=== PATIENT | female | born 1995 | race Caucasian/White ===

== ENCOUNTER 2025-03-07 18:15 | Emergency (ER) | payer OTHER ==
[2025-03-07 19:33] LABS: Absolute Lymphocytes (CBC) 3.0 K/uL (0.7-4.9); Hematocrit 39.4 % (36.0-45.0); Hemoglobin 13.0 g/dL (12.0-15.0); MCH 29.6 pg (27.0-35.0); MCHC 32.9 g/dL (32.0-36.0); MCV 89.9 fL (80-100); MPV 10.4 fL (7.6-11.3); Nucleated RBC Absolute Count 0.0 (0-0); Nucleated Red Blood Cells % 0.0 % (0-0); RBC Red Blood Cell Count 4.38 M/uL (3.86-4.86); White Blood Count 7.30 thou/uL (4.3-10.9)
[2025-03-07 19:34] LABS: Urine Culture Reflex Order REFLEXED; Urine Microscopic Reflex YN NO UMIC
[2025-03-07 19:56] LABS: Anion Gap 7.0 mEq/L (5.0-15.0); BUN Blood Urea Nitrogen 11.0 mg/dL (7-18); Glucose Level 90.0 mg/dL (74-106); HCG, Quantitative 18.0 mIU/mL (1-3); Potassium 4.0 mEq/L (3.5-5.1)
--- NOTE | 2025-03-07 20:30 | RAD REPORT ---
EXAM: Transvaginal OB HISTORY: VAGINAL BLEEDING COMPARISON: None TECHNIQUE: Multiple grayscale and color Doppler images were obtained in a transvaginal pelvic ultraso und. Spectral analysis of the Doppler waveforms of the ovaries were performed. FINDINGS: UTERUS: No IUP identified. No free fluid is seen in the pelvis. RIGHT OVARY: Normal flow without focal mass. LEFT OVARY: Normal flow without focal mass. IMPRESSION: No IUP identified. In the setting of a positive hCG level, this would indicate of unknown l ocation. Serial hCG level measurements and short term follow-up is recommended Bilateral ovarian blood flow.
[2025-03-07] MEDS ORDERED: ACETAMINOPHEN 500 MG TAB ONE (20:55)
--- NOTE | 2025-03-07 21:28 | EDPHYS ---
Physician Documentation [facility] Name: Linette Leavitt Age: 30 yrs Sex: Female : 1995 Arrival Date: 03/07/2025 Time: 18:15 Bed 8 Private MD: ED Physician Mau White HPI: 03/07 18:50 This 30 yrs old Female presents to ER via Ambulatory with complaints of Abdominal cp Cramping, bleeding /preg. 18:50 The patient presents to the emergency department with abdominal pain, of the left lower cp quadrant and right lower quadrant, that started today, described as crampy, vaginal bleeding. 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 Last tetanus immunization: up to date. - Infectious Disease History:: Denies. - Social history:: Smoking status: Patient denies any tobacco usage or history of. ROS: 20:53 Abdomen/GI: Positive for abdominal cramps, cp 20:53 : Positive for vaginal bleeding, 20:55 Constitutional: Negative for body aches, chills, fever, poor PO intake, cp 20:55 Eyes: Negative for injury, pain, redness, and discharge, cp 20:55 ENT: Negative for drainage from ear(s), ear pain, sore throat, difficulty swallowing, difficulty handling secretions, 20:55 Cardiovascular: Negative for chest pain, palpitations, 20:55 Respiratory: Negative for cough, shortness of breath, wheezing, 20:55 Back: Negative for pain at rest, pain with movement, 20:55 Neuro: Negative for altered mental status, weakness, 20:55 All other systems are negative, Exam: 20:57 Constitutional: The patient appears in no acute distress, alert, awake, non-toxic, well cp developed, well nourished, obese, 20:57 Head/Face: Normocephalic, atraumatic. cp 20:57 Eyes: Periorbital structures: appear normal, Conjunctiva: normal, no exudate, no injection, Sclera: no appreciated abnormality, Lids and lashes: appear normal, bilaterally, 20:57 ENT: External ear(s): are unremarkable, Nose: is normal, Mouth: Lips: moist, Oral mucosa: moist, Posterior pharynx: Airway: no evidence of obstruction, patent, 20:57 Chest/axilla: Inspection: normal, 20:57 Cardiovascular: Rate: normal, Rhythm: regular, 20:57 Respiratory: the patient does not display signs of respiratory distress, Respirations: normal, no use of accessory muscles, no retractions, labored breathing, is not present, Breath sounds: are clear throughout, no decreased breath sounds, no stridor, no wheezing, 20:57 Abdomen/GI: Inspection: abdomen appears normal, Bowel sounds: active, all quadrants, Palpation: soft, in all quadrants, mild abdominal tenderness, in the right lower quadrant and left lower quadrant, rebound tenderness, is not appreciated, involuntary guarding, is not appreciated, 20:57 Back: ROM is normal, CVA tenderness, is absent, 20:57 Neuro: Orientation: to person, place \T\ time. Mentation: is normal, Motor: moves all fours, strength is normal, Sensation: is normal, Vital Signs: 18:36 BP 122 / 76; Pulse 75; Resp 18; Temp 98.1; Pulse Ox 100% on R/A; Weight 107.05 kg; db Height 5 ft. 5 in. ; 19:49 BP 121 / 78; Pulse 83; Resp 18; Pulse Ox 99% ; cp4 20:45 BP 128 / 74; Pulse 87; Resp 18; Pulse Ox 99% on R/A; hm5 21:34 BP 129 / 84; Pulse 83; Resp 17; Pulse Ox 100% on R/A; hm5 18:36 Body Mass Index 39.27 (107.05 kg, 165.1 cm) db MDM: 18:37 Medical Screening Exam initiated cp 21:27 Data reviewed: vital signs, nurses notes, lab test result(s), radiologic studies, cp ultrasound, and as a result, I will discharge patient. 21:27 Differential diagnosis: STD, ectopic , uti. I considered the following cp discharge prescriptions or medication management in the emergency department Medications were administered in the Emergency Department. See MAR. Counseling: I had a detailed discussion with the patient and/or guardian regarding the historical points, exam findings, and any diagnostic results supporting the discharge/admit diagnosis, lab results, radiology results, the need for outpatient follow up, an OB/Gyne specialist, to return to the emergency department if symptoms worsen or persist or if there are any questions or concerns that arise at home. Special discussion: low serum beta-hcg and no IUP seen on US. recommend recheck beta-hcg in 48 hrs. 03/07 18:47 Order name: Abo/rh Typing; Complete Time: 20:48 cp 03/07 20:49 Interpretation: Reviewed. 03/07 18:47 Order name: Basic Metabolic Panel; Complete Time: 20:48 cp 03/07 20:48 Interpretation: Normal except: CL 111. 03/07 18:47 Order name: CBC with Diff; Complete Time: 20:48 cp 03/07 20:49 Interpretation: Reviewed. 03/07 18:47 Order name: Test, Urine; Complete Time: 20:48 cp 03/07 20:48 Interpretation: Reviewed. 03/07 18:47 Order name: Quantitative Hcg; Complete Time: 20:48 cp 03/07 20:48 Interpretation: Reviewed. 03/07 18:47 Order name: UA Rfx Silvano Cult if indicated; Complete Time: 20:48 cp 03/07 20:49 Interpretation: Reviewed. 03/07 19:41 Order name: Urine Culture EDID 03/07 19:31 Order name: US Transvaginal Ob; Complete Time: 20:48 cp 03/07 20:49 Interpretation: Report reviewed. 03/07 18:47 Order name: IV Saline Lock; Complete Time: 19:15 cp 03/07 18:47 Order name: Labs collected and sent; Complete Time: 19:15 cp 03/07 18:47 Order name: NPO; Complete Time: 19:15 cp Administered Medications: 20:57 Drug: Acetaminophen PO 1000 mg PO once Route: PO; hm5 21:35 Follow up: Response: No adverse reaction; Pain is decreased hm5 Disposition Summary: 03/07/25 21:27 Discharge Ordered Notes: Location: Home cp Problem: new cp Symptoms: have improved cp Condition: Stable cp Diagnosis - Threatened cp Followup: cp - With: Private Physician - When: 48 Hours - Reason: Repeat Beta-HCG (48 Hours) Discharge Instructions: - Discharge Summary Sheet cp - Threatened Miscarriage cp - Vaginal Bleeding During , First Trimester cp Forms: - Medication Reconciliation Form cp - Antibiotic Education cp - Prescription Opioid Use cp - Patient Portal Instructions cp - Leadership Thank You Letter cp Signatures: Dispatcher [employer] EDBenigno Baltazar PA-C PA-C cp Benton, Danielle RN RN db Ines Farmer RN RN hm5 Corrections: (The following items were deleted from the chart) 18:38 18:38 Allergies: No Known Allergies; db db 20:53 18:50 5, Full Term 3, 1, Living 3, LMP 02/04/2025, Verified, cp EDC 11/11/2025, Gestational age from LMP: 4 weeks 4 days cp
--- NOTE | 2025-03-07 21:28 | ER ---
Nurse's Notes [facility] Name: Linette Leavitt Age: 30 yrs Sex: Female : 1995 Arrival Date: 03/07/2025 Time: 18:15 Bed 8 Private MD: Diagnosis: Threatened Presentation: 03/07 18:36 Chief complaint: Patient states: she started having abdominal cramping and bleeding db today. patient reports positive blood test for at [place] last week. LMP is 02/01/25. Coronavirus screen: At this time, the client does not indicate any symptoms associated with coronavirus-19. Ebola Screen: No symptoms or risks identified at this time. Initial Sepsis Screen: Does the patient meet any 2 criteria? No. Patient's initial sepsis screen is negative. Does the patient have a suspected source of infection? No. Patient's initial sepsis screen is negative. Risk Assessment: Do you want to hurt yourself or someone else? Patient reports no desire to harm self or others. Onset of symptoms was March 07, 2025. 18:36 Method Of Arrival: Ambulatory db 18:36 Method Of Arrival: Ambulatory db 18:36 Acuity: MARCY 3 db Triage Assessment: 18:38 General: Appears in no apparent distress. Behavior is calm, cooperative, appropriate db for age. Pain: Complains of pain in pelvis. Neuro: Level of Consciousness is awake, alert, obeys commands, Oriented to person, place, time, situation, Appropriate for age. Cardiovascular: Patient's skin is warm and dry. Respiratory: Airway is patent Respiratory effort is even, unlabored, Respiratory pattern is regular, symmetrical. GI: Reports lower abdominal pain. : Reports vaginal bleeding that is. 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 Last tetanus immunization: up to date. - Infectious Disease History:: Denies. - Social history:: Smoking status: Patient denies any tobacco usage or history of. Screenin:39 [facility] ED Fall Risk Assessment (Adult) History of falling in the last 3 months, db including since admission No falls in past 3 months (0 pts) Confusion or Disorientation No (0 pts) Intoxicated or Sedated No (0 pts) Impaired Gait No (0 pts) Mobility Assist Device Used No (0 pt) Altered Elimination No (0 pt) Score/Fall Risk Level 0 - 2 = Low Risk Oriented to surroundings, Maintained a safe environment, Educated pt \T\ family on fall prevention, incl call for assistance when getting out of bed, Assessed \T\ reinforced patient's understanding of fall precautions, Hourly rounding (assess needs \T\ fall precautionary measures) done, Used ambulatory aids as needed (educated on \T\ assisted with). Abuse screen: Denies threats or abuse. Nutritional screening: No deficits noted. Tuberculosis screening: No symptoms or risk factors identified. Assessment: 18:56 General: Appears in no apparent distress. Behavior is calm, cooperative. Pain: iw Complains of pain in suprapubic area, right lower quadrant, left lower quadrant and pelvis. Neuro: Level of Consciousness is awake, alert, obeys commands, Oriented to person, place, time, situation, Moves all extremities. Full function. Cardiovascular: Patient's skin is warm and dry. Respiratory: Respiratory effort is even, unlabored, Respiratory pattern is regular, symmetrical. GI: Abdomen is non-distended, Reports lower abdominal pain. : Reports pain in suprapubic area vaginal bleeding that is bright red. Derm: Skin is intact, is healthy with good turgor. Musculoskeletal: Capillary refill Range of motion: intact in all extremities. Vital Signs: 18:36 BP 122 / 76; Pulse 75; Resp 18; Temp 98.1; Pulse Ox 100% on R/A; Weight 107.05 kg; db Height 5 ft. 5 in. ; 19:49 BP 121 / 78; Pulse 83; Resp 18; Pulse Ox 99% ; cp4 20:45 BP 128 / 74; Pulse 87; Resp 18; Pulse Ox 99% on R/A; hm5 21:34 BP 129 / 84; Pulse 83; Resp 17; Pulse Ox 100% on R/A; hm5 18:36 Body Mass Index 39.27 (107.05 kg, 165.1 cm) db ED Course: 18:18 Patient arrived in ED. ts1 18:19 Benigno Thao PA is PHCP. cp 18:19 Mau White MD is Attending Physician. cp 18:38 Triage completed. db 18:39 Arm band placed on right wrist. db 19:04 Ines Farmer, RN is Primary Nurse. hm5 19:15 Patient has correct armband on for positive identification. Bed in low position. Call hm5 light in reach. Side rails up X 1. Provided Education on: plan of care. 19:15 No provider procedures requiring assistance completed. Inserted saline lock: 20 gauge hm5 in left antecubital area, using aseptic technique. Blood collected. Flushed with 10 mL NS. 19:49 Urine Culture Sent. hm5 20:06 US Transvaginal Ob In Process Unspecified. EDMS 21:35 IV discontinued, intact, bleeding controlled, No redness/swelling at site. Pressure hm5 dressing applied. Administered Medications: 20:57 Drug: Acetaminophen PO 1000 mg PO once Route: PO; 5 21:35 Follow up: Response: No adverse reaction; Pain is decreased hm5 Medication: 19:15 VIS not applicable for this client. 5 Outcome: 21:27 Discharge ordered by MD. cp 21:35 Discharged to home ambulatory, with family, [facility] 21:35 Condition: stable 21:35 Discharge instructions given to patient, Instructed on discharge instructions, follow up and referral plans. Demonstrated understanding of instructions, follow-up care, 21:36 Patient left the ED. 5 Signatures: Dispatcher [employer] EDPR Shannon Maloney RN RN Benigno Thao PA-Zev PA-C Marlena Kohli RN RN Dannielle Almonte PAS PAS ts1 Ashanti Caro cp4 Ines Farmer, RN RN 5 Corrections: (The following items were deleted from the chart) 18:38 18:38 Allergies: No Known Allergies; db db
[2025-03-08 04:18] VITALS: TEMP 98.1
[2025-03-08 04:23] VITALS: BP 129/84; O2SAT 100
== END 2025-03-07 21:36 ==
LOC: ER 18:15
DX: O20.0 Threatened abortion (principal); Z3A.01 Less than 8 weeks gestation of pregnancy
CPT/HCPCS: 36415; 76817; 80048; 81003; 81025; 84702; 85025; 86900; 86901; 87086; 87088; 99284